=== PATIENT | female | born 1960 | race Caucasian/White ===

== ENCOUNTER 2017-04-24 11:30 | Emergency (ER) | payer OTHER ==
[~2017-04-24] VITALS: Ht 162.6 cm; Wt 100.0 kg
--- NOTE | 2017-04-24 11:38 | ERA ---
ER Documentation Chief Complaint Date/Time DATE: 04/24/17 TIME: 11:38 Chief Complaint Chest pain HPI The patient is a 57-year-old female, presenting with substernal chest pain after she took a medication for her headache 30 minutes prior. She has similar chest pain in the past, worse with movement. The pain is described as achy, 8/ 10, nonradiating. She denies fever, chills, neck pain, dyspnea, abdominal pain, vomiting, dysuria, diarrhea. She does not smoke nor drink, has increased stress in her life. She was treated by EMS aspirin 160 mg p.o. and 1 spray of nitroglycerin with good response Past medical history: Hypertension, diabetes mellitus, sciatica, chronic low back pain, varicosis vein Past surgical history: Ventral herniorrhaphy ROS All systems reviewed and are negative except as per history of present illness. Medications Home Meds Reported Medications Metformin Hcl* (Metformin Hcl*) 1,000 Mg Tablet, 1000 MG PO WITH BREAKFAST DINNE , #30 TAB 04/24/17 Lisinopril* (Lisinopril*) 40 Mg Tablet, 40 MG PO DAILY, #30 TAB 04/24/17 Docusate Sodium* (Colace*) 100 Mg Capsule, 100 MG PO BID, #60 CAP 04/24/17 Glipizide* (Glipizide*) 5 Mg Tablet, 5 MG PO BID, TAB 04/24/17 Insulin Glargine* (Lantus*) 100 Unit/Ml Soln, 50 UNIT SC DAILY, #1 VIAL 04/24/17 Allergies Allergies: Coded Allergies: No Known Allergy (Unverified , 04/24/17) Physical Exam Vitals Vital Signs Date Time Temp Pulse Resp B/P Pulse Ox O2 Delivery O2 Flow Rate FiO2 04/24/17 14:45 58 23 144/65 99 Room Air 04/24/17 12:09 Nasal Cannula 2 04/24/17 11:57 98.3 61 22 178/65 100 Physical Exam Const: No acute distress. Head: Atraumatic. Eyes: Normal Conjunctiva. ENT: Normal External Ears, Nose and Mouth. Neck: Full range of motion. No meningismus. Resp: Clear to auscultation bilaterally. Cardio: Regular rate and rhythm. Abd: Soft, non distended, normal bowel sounds, non tender. Skin: No petechiae or rashes. Back: No midline or flank tenderness. Ext: No cyanosis, or edema. Neur: Awake and alert. No focal deficit Psych: Normal Mood and Affect. Result Diagram: 04/24/17 1155 04/24/17 1155 Results 24 hrs Laboratory Tests Test 04/24/17 11:55 White Blood Count 7.510^3/ul Red Blood Count 4.9110^6/ul Hemoglobin 13.7g/dl Hematocrit 40.6% Mean Corpuscular Volume 82.7fl Mean Corpuscular Hemoglobin 27.9pg Mean Corpuscular Hemoglobin Concent 33.7g/dl Red Cell Distribution Width 13.9% Platelet Count 89139^3/UL Mean Platelet Volume 11.6fl Neutrophils % 54.2% Lymphocytes % 37.7% Monocytes % 6.0% Eosinophils % 1.2% Basophils % 0.4% Nucleated Red Blood Cells % 0.0/100WBC Neutrophils # 4.110^3/ul Lymphocytes # 2.810^3/ul Monocytes # 0.510^3/ul Eosinophils # 0.110^3/ul Basophils # 0.010^3/ul Nucleated Red Blood Cells # 0.010^3/ul Prothrombin Time 11.4Sec Prothrombin Time Ratio 0.9 INR International Normalized Ratio 0.83 Activated Partial Thromboplast Time 26.7Sec D-Dimer 391.20ng/ml D-Dimer Comment Sodium Level 141mmol/L Potassium Level 4.3mmol/L Chloride Level 99mmol/L Carbon Dioxide Level 25mmol/L Anion Gap 21 Blood Urea Nitrogen 17mg/dl Creatinine 0.54mg/dl Glucose Level 226mg/dl Calcium Level 9.8mg/dl Troponin I < 0.012ng/ml Current Medications Medications (Trade) Dose Ordered Sig/Presley Route PRN Reason Start Time Stop Time Status Last Admin Dose Admin Pantoprazole (Protonix Iv) 40 mg ONCE ONCE IV 04/24/17 12:00 04/24/17 12:01 DC 04/24/17 13:19 Aspirin (Aspirin) 162 mg ONCE ONCE PO 04/24/17 14:30 04/24/17 14:31 DC 04/24/17 14:39 Nitroglycerin (Nitroglycerin 2% Oint) 1 inch ONCE ONCE TD 04/24/17 14:30 04/24/17 14:31 DC 04/24/17 14:42 Procedures/MDM [place] [address] Radiology Main Line: [phone] DIAGNOSTIC IMAGING REPORT Patient: RAJENDRA PETTIT : 1960 Age: 57 Sex: F MR #: [id number] DOS: 04/24/17 0000 Ordering MD: ELIZABETH ALVARADO MD Location: E/R Room/Bed: PROCEDURE: XR Chest. CLINICAL INDICATION: ?rt lung nodule TECHNIQUE: Two frontal views of the chest were obtained. Nipple markers were placed on the patient prior to acquisition of both images. Per discussion with the on-site interventional radiology technologist, the nipple markers are not visible on either image secondary to body habitus. COMPARISON: Chest x-ray 04/24/2079 12:01 p.m. FINDINGS: The nipple markers are not visible on either image, secondary to body habitus. The previously seen right lower lobe pulmonary nodule is faintly visible projecting over the right costophrenic angle/lateral hemidiaphragm (marked with an arrow on the 2nd image). The nodule was better demonstrated on the prior study as there was a better inspiratory result on the prior study. The cardiomediastinal silhouette is within normal limits. No pneumothorax, significant pleural effusion, or new parenchymal consolidation is identified. There are degenerative changes of the visualized spine. IMPRESSION: Right lower lobe pulmonary nodule, better visualized on the prior study performed earlier the same day. Recommend CT chest for further evaluation. No other significant change. RPTAT: PP Physician Coleman Date Time Electronically viewed and signed by Physician Coleman on 04/24/2017 13: 59 RC/ CC: ELIZABETH ALVARADO MD EKG: Read by emergency physician Rate/Rhythm: Normal Sinus Rhythm 68 beats/min QRS, ST, T-waves: No ST elevation, no T inversion Impression: Normal EKG MEDICAL MAKING DECISION: The patient is a 57-year-old female with multiple cardiac risk factor, is presenting with acute chest pain that is concerning for ACS. She was treated with aspirin 160 mg p.o. and 1 inch of nitroglycerin ointment and Protonix 40 mg IV with good response The differential diagnoses considered include but are not limited to acute coronary syndrome, acute myocardial infarction, pericarditis, pulmonary embolism , aortic dissection, pneumonia, pleural effusion, pneumothorax, GERD, chest wall pain. Departure Diagnosis: Primary Impression: Chest pain Additional Impression: Pulmonary nodule, right Condition: Stable Comments The patient is being transferred to her contracted hospital via ambulance in stable condition ELIZABETH ALVARADO MD Apr 24, 2017 11:38
[2017-04-24 11:57] VITALS: Ht 162.6 cm; Wt 100.0 kg
[2017-04-24] MEDS ORDERED: LANT3I SC (11:59)
[2017-04-24] MEDS ORDERED: GLIP5TAB13 PO (11:59)
[2017-04-24] MEDS ORDERED: DOCU-144 PO (11:59)
[2017-04-24] MEDS ORDERED: LISI40TA9 PO (12:00)
[2017-04-24] MEDS ORDERED: METF1000 PO (12:00)
[2017-04-24] MEDS ORDERED: PANTOPRAZOLE 40 MG INJ IV ONE (12:00)
[2017-04-24 12:11] LABS: BASOPHILS % 0.4 % (0.0-2.0); EOSINOPHILS # 0.1 10^3/ul (0.0-0.5); EOSINOPHILS % 1.2 % (0.0-7.0); HEMATOCRIT 40.6 % (37.0-47.0); HEMOGLOBIN 13.7 g/dl (12.0-16.0); LYMPHOCYTES # 2.8 10^3/ul (0.8-2.9); LYMPHOCYTES % 37.7 % (15.0-51.0); MEAN CORPUSCULAR HEMOGLOBIN 27.9 pg (29.0-33.0); MEAN CORPUSCULAR HGB CONC 33.7 g/dl (32.0-37.0); MEAN CORPUSCULAR VOLUME 82.7 fl (82.0-101.0); MEAN PLATELET VOLUME 11.6 fl (7.4-10.4); MONOCYTE # 0.5 10^3/ul (0.3-0.9); NEUTROPHIL # 4.1 10^3/ul (1.6-7.5); NEUTROPHILS % 54.2 % (39.0-77.0); PLATELET COUNT 236 10^3/UL (140-415); RED BLOOD COUNT 4.91 10^6/ul (4.20-5.40); RED CELL DISTRIBUTION WIDTH 13.9 % (11.5-14.5); WHITE BLOOD COUNT 7.5 10^3/ul (4.8-10.8)
--- NOTE | 2017-04-24 12:16 | RADRPT ---
AMENDMENT: 04/24/2017 12:19:02 PM Ap Castano M.D Addendum: There is a 1.7 cm pulmonary nodule in the right lateral lung base. Recommend repeat ches t radiograph with nipple markers versus CT chest. Call report: A call report was made to Dr. Hernandez at approximately 12:15 p.m. on 09/24/2017. PROCEDURE: Chest Radiograph. CLINICAL INDICATION: Chest pain TECHNIQUE: Single frontal chest radiograph. COMPARISON: None available FINDINGS: The cardiomediastinal silhouette is within normal limits. No infiltrate or effusion is seen. Th e bones are intact. IMPRESSION: 1. Unremarkable chest radiograph. RPTAT: AA .Ap Castano MD, MD Date Time Electronically viewed and signed by .Ap Castano MD, MD on 04/24/2017 12:19 .B/
[2017-04-24 12:29] LABS: INR 0.83; PROTIME 11.4 Sec (12.2-14.2); PT RATIO 0.9
[2017-04-24 12:30] LABS: ANION GAP 21 (8-16); BLOOD UREA NITROGEN 17 mg/dl (7-20); CALCIUM 9.8 mg/dl (8.4-10.2); CARBON DIOXIDE 25 mmol/L (21-31); CHLORIDE 99 mmol/L (97-110); CREATININE 0.54 mg/dl (0.44-1.00); GLUCOSE 226 mg/dl (70-220); PARTIAL THROMBOPLASTIN TIME 26.7 Sec (25.0-35.0); POTASSIUM 4.3 mmol/L (3.5-5.1); SODIUM 141 mmol/L (135-144)
[2017-04-24 12:32] LABS: D-DIMER 391.2 ng/ml (<460)
[2017-04-24 12:43] LABS: TROPONIN-I < 0.012 ng/ml (0.00-0.12)
--- NOTE | 2017-04-24 13:59 | RADRPT ---
PROCEDURE: XR Chest. CLINICAL INDICATION: ?rt lung nodule TECHNIQUE: Two frontal views of the chest were obtained. Nipple markers were placed on the patien t prior to acquisition of both images. Per discussion with the on-site dairy manufacturing technologist, the nipple markers are not visible on either image secondary to body habitus. COMPARISON: Chest x-ray 04/24/2079 12:01 p.m. FINDINGS: The nipple markers are not visible on either image, secondary to body habitus. The previously seen right lower lobe pulmonary nodule is faintly visible projecting over the right c ostophrenic angle/lateral hemidiaphragm (marked with an arrow on the 2nd image). The nodule was bet ter demonstrated on the prior study as there was a better inspiratory result on the prior study. The cardiomediastinal silhouette is within normal limits. No pneumothorax, significant pleural effusion, or new parenchymal consolidation is identified. There are degenerative changes of the visualized spine. IMPRESSION: Right lower lobe pulmonary nodule, better visualized on the prior study performed earlier the same d ay. Recommend CT chest for further evaluation. No other significant change. RPTAT: PP Physician Coleman Date Time Electronically viewed and signed by Physician Coleman on 04/24/2017 13:59 /
[2017-04-24] MEDS ORDERED: ASPIRIN 81 MG TAB PO ONE (14:30)
[2017-04-24] MEDS ORDERED: NITROGLYCERIN 2% 1 GM OINT PKT TD ONE (14:30)
[2017-04-24 17:45] VITALS: BP 137/51; PULSE 65; RESP 17; TEMP 98.3
== END 2017-04-24 17:55 | disposition short-term general hospital (02) ==
LOC: E/R 11:30
DX: R07.2 Precordial pain (principal); R91.1 Solitary pulmonary nodule; Z79.4 Long term (current) use of insulin; Z79.84 Long term (current) use of oral hypoglycemic drugs
CPT/HCPCS: 36415; 71010; 80048; 82962; 84484; 85025; 85378; 85610; 85730; 93005; 96374; C9113; Z7502; Z7610